=== PATIENT | female | born 1985 | race Native Hawaiian/Other Pacific Islander ===

== ENCOUNTER 2019-01-18 21:05 | Outpatient (CLI) | payer OTHER ==
[2019-01-18 21:52] LABS: PLATELET COUNT 220 K/uL (152-353)
== END 2019-01-18 23:40 | disposition home or self-care (01) ==
LOC: LABW 21:05
DX: O13.9 Gestational [pregnancy-induced] hypertension without significant proteinuria, unspecified trimester (principal)
CPT/HCPCS: 36415; 80076; 82565; 82575; 84156; 85027

== ENCOUNTER 2020-10-11 08:14 | Outpatient (CLI) | payer OTHER ==
[2020-10-11 09:22] LABS: PLATELET COUNT 183 K/uL (152-353)
== END 2020-10-11 21:35 | disposition home or self-care (01) ==
LOC: LABW 08:14
PROVIDERS: ATTEND Obstetrics & Gynecology
DX: Z34.82 Encounter for supervision of other normal pregnancy, second trimester (principal)
CPT/HCPCS: 36415; 82784; 82951; 83036; 85027; 86592; 86701; 86702; 86706; 86762; 86900; 86901; 87389

== ENCOUNTER 2021-01-05 14:49 | Emergency (ER) | payer OTHER ==
[~2021-01-05] VITALS: Ht 175.3 cm; Wt 103.9 kg
[2021-01-05 14:53] VITALS: TEMP 97.3
[2021-01-05] MEDS ORDERED: LABETALOL100 MG PO (15:12)
[2021-01-05 16:12] LABS: PLATELET COUNT 288 K/uL (152-353)
[2021-01-05 16:23] LABS: PARTIAL THROMBOPLASTIN TIME 24.1 SECONDS (24.5-33.6)
[2021-01-05 19:11] VITALS: BP 156/83
== END 2021-01-05 19:50 | disposition short-term general hospital (02) ==
LOC: ED 14:49
PROVIDERS: Hospitalist
DX: O86.09 Infection of obstetric surgical wound, other surgical site (principal); O90.0 Disruption of cesarean delivery wound
CPT/HCPCS: 80053; 81000; 83605; 85027; 85610; 85730; 87040; 87070; 87077; 87186; 87205; 96365; 96366; 96375; 99284; J1885; J2270; J2405; J2543; J2765; J3370; Q9963

== ENCOUNTER 2022-04-15 11:55 | Outpatient (CLI) | payer OTHER ==
[~2022-04-15 11:55] MED LIST: LABETALOL100 MG PO
== END 2022-04-15 18:52 | disposition home or self-care (01) ==
LOC: LABW 11:55
DX: Z02.83 Encounter for blood-alcohol and blood-drug test (principal)
CPT/HCPCS: 80307